=== PATIENT | female | born 2005 | race Two or more races ===

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

== ENCOUNTER 2024-01-24 14:14 | Outpatient (CLI) | payer OTHER | END 2024-01-24 14:15 | disposition home or self-care (01) | LOC: PRENATAL 14:14 | PROVIDERS: ATTEND Obstetrics & Gynecology Maternal & Fetal Medicine | DX: O26.849 Uterine size-date discrepancy, unspecified trimester (principal); O36.8199 Decreased fetal movements, unspecified trimester, other fetus; Z3A.32 32 weeks gestation of pregnancy ==

== ENCOUNTER 2024-03-14 08:15 | Inpatient (IN) | payer OTHER ==
[~2024-03-14] VITALS: Ht 147.3 cm; Wt 3.2 kg
[2024-03-20] VITALS (7 sets, daily range): BP systolic 115–138; BP diastolic 64–86
[2024-03-20] MEDS ORDERED: PRENATABS RX T1 EACH PO (06:52)
[2024-03-20] MEDS ORDERED: FOLIC ACID0.8 M1 PO (06:52)
[2024-03-20] MEDS ORDERED: MISOPROSTOL 25 MCG/4 ML GEL.W.APPL VAG ONE (07:15)
[2024-03-20 07:17] LABS: HEMATOCRIT 35.5 % (36.0-45.00); HEMOGLOBIN 12.3 g/dL (12.0-15.00); MEAN CELL VOLUME 91.9 fL (80.00-100.00); MEAN CORPUSCULAR HGB CONC 34.8 g/dl (32.0-36.0); PLATELET COUNT 251 K/uL (150-450); RED BLOOD COUNT 3.86 M/uL (4.00-6.00); RED CELL DISTRIBUTION WIDTH 13.1 % (11.5-14.5)
[2024-03-20 07:34] LABS: URINE APPEARANCE Clear; URINE BILIRRUBIN Negative (NEGATIVE); URINE BLOOD Negative; URINE COLOR Yellow; URINE GLUCOSE Negative (NEGATIVE); URINE KETONE Negative (NEGATIVE); URINE LEUKOCYTE Small; URINE NITRATE Negative; URINE PROTEIN Negative (NEGATIVE); URINE UROBILINOGEN 0.2 E.U./dl
[2024-03-20 07:39] LABS: INR < 0.93; PARTIAL THROMBOPLASTIN TIME 26.8 SECONDS (22.0-34.0); PROTHROMBIN TIME 10.2 SECONDS (9.0-11.5); URINE BACTERIA 234.9 uL (0.0-1933); URINE EPITHELIAL CELLS 13.6 uL (0.0-38.8); URINE RBC 4.2 uL (0.0-20.8); URINE WBC 188.1 uL (0.0-23.2)
[2024-03-20 07:41] LABS: URINE CAST 0.29 uL (0.0-1.40)
[2024-03-20] MEDS ORDERED: OXYTOCIN 500 ML IV SCH (12:00)
[2024-03-20] MEDS ORDERED: MORPHINE SULFATE 4 MG/ML CARTRIDGE IV ONE (12:00)
[2024-03-20] MEDS ORDERED: OXYTOCIN 10 UNITS/ML VIAL IV ONE (19:00)
[2024-03-20] MEDS ORDERED: ERYTHROMYCIN BASE OPHT 1GM EACH TUBE OP ONE (19:00)
[2024-03-20] MEDS ORDERED: CEFAZOLIN SODIUM 1,000 MG VIAL IV ONE (19:00)
[2024-03-20] MEDS ORDERED: MEPERIDINE HCL/PF 50 MG/ML VIAL IM PRN (19:30)
[2024-03-20] MEDS ORDERED: PROMETHAZINE HCL 50 MG/ML AMPUL IM PRN (19:30)
[2024-03-20] MEDS ORDERED: MORPHINE SULFATE 4 MG/ML VIAL IV ONE ×2 (20:30→21:30)
[2024-03-21] MEDS ORDERED: OxyCODONE HCL/APAP UD (PERCOCET) PO PRN (08:00)
[2024-03-21 08:38] LABS: HEMATOCRIT 34.2 % (36.0-45.00); HEMOGLOBIN 11.8 g/dL (12.0-15.00); MEAN CELL VOLUME 91.9 fL (80.00-100.00); MEAN CORPUSCULAR HEMOGLOBIN 31.6 pg (27.00-32.0); MEAN CORPUSCULAR HGB CONC 34.4 g/dl (32.0-36.0); PLATELET COUNT 235 K/uL (150-450); RED BLOOD COUNT 3.73 M/uL (4.00-6.00); RED CELL DISTRIBUTION WIDTH 12.9 % (11.5-14.5)
[2024-03-21] MEDS ORDERED: DOCUSATE SODIUM 100MG CAP PO SCH (09:00)
[2024-03-21] MEDS ORDERED: SIMETHICONE 125 MG CAPSULE PO SCH (09:00)
[2024-03-21] MEDS ORDERED: PNV,CALCIUM 72/IRON/FOLIC ACID 1 TAB TABLET PO SCH (09:00)
[2024-03-21 15:46] VITALS: BP 125/85
[2024-03-21 23:40] VITALS: BP 108/71
[2024-03-22 08:50] VITALS: BP 115/75
[2024-03-22] MEDS ORDERED: FF) RHO(D) IMMUNE GLOBULIN (POM) IM SCH (15:15)
[2024-03-22 15:54] VITALS: BP 113/74
[2024-03-22 20:12] VITALS: BP 114/77
[2024-03-23 00:05] VITALS: BP 103/38
[2024-03-23 08:00] VITALS: BP 113/78
== END 2024-03-23 14:42 | disposition home or self-care (01) | DRG 788 ==
LOC: OB/GYN 03-20 05:53 → LDR 03-20 05:53 → OB/GYN 03-20 20:12
PROVIDERS: ADMIT Obstetrics & Gynecology; ATTEND Obstetrics & Gynecology
PROC: 4A1HXCZ Monitoring of Products of Conception, Cardiac Rate, External Approach (ICD-10-PCS; 2024-03-20)
PROC: 10D00Z1 Extraction of Products of Conception, Low, Open Approach (ICD-10-PCS; principal; 2024-03-20 18:00)
DX: O62.2 Other uterine inertia (principal); O33.8 Maternal care for disproportion of other origin; Z3A.40 40 weeks gestation of pregnancy; Z37.0 Single live birth; Z20.822 Contact with and (suspected) exposure to COVID-19